=== PATIENT | male | born 1975 | race Caucasian/White ===

== ENCOUNTER 2020-05-03 10:26 | Emergency (ER) | payer OTHER ==
[~2020-05-03] VITALS: Ht 167.6 cm; Wt 122.5 kg
[2020-05-03] MEDS ORDERED: MOTRIN PM CAPL1 EACH (11:14)
== END 2020-05-03 14:50 | disposition home or self-care (01) ==
LOC: ER 10:26
DX: N20.1 Calculus of ureter (principal); Z20.822 Contact with and (suspected) exposure to COVID-19

== ENCOUNTER 2020-05-05 17:25 | Inpatient (IN) | payer OTHER ==
[~2020-05-05] VITALS: Ht 167.6 cm; Wt 77.1 kg
[~2020-05-05 17:25] MED LIST: MOTRIN PM CAPL1 EACH
== END 2020-05-06 18:40 | disposition home or self-care (01) | DRG 661 ==
LOC: ER 17:25 → SEC-K 05-06 08:30 → O/R 05-06 08:30
PROVIDERS: ADMIT Urology; ATTEND Urology
PROC: 0T9780Z Drainage of Left Ureter with Drainage Device, Via Natural or Artificial Opening Endoscopic (ICD-10-PCS; 2020-05-06)
PROC: 0TF78ZZ Fragmentation in Left Ureter, Via Natural or Artificial Opening Endoscopic (ICD-10-PCS; 2020-05-06)
PROC: 0T778DZ Dilation of Left Ureter with Intraluminal Device, Via Natural or Artificial Opening Endoscopic (ICD-10-PCS; principal; 2020-05-06 14:15)
DX: N20.1 Calculus of ureter (principal); Z20.822 Contact with and (suspected) exposure to COVID-19

== ENCOUNTER 2020-05-26 08:02 | Outpatient (CLI) | payer OTHER | END 2020-05-26 08:23 | disposition HB | LOC: RAD 08:02 | PROVIDERS: ATTEND Urology | DX: N20.1 Calculus of ureter (principal) ==

== ENCOUNTER 2023-06-17 18:01 | Emergency (ER) | payer OTHER ==
[~2023-06-17] VITALS: Ht 167.6 cm; Wt 83.9 kg
[2023-06-17] MEDS ORDERED: ZESTRIL10 M1 (18:10)
[2023-06-17] MEDS ORDERED: SANDOSTATI50 MCG/1 M (18:12)
[2023-06-17] MEDS ORDERED: POTASSIUM99 M3 (18:13)
[2023-06-17] MEDS ORDERED: FUROSEMIDE20 MG (18:14)
[2023-06-17] MEDS ORDERED: ORPHENADRINE CITRATE 30 MG/ML AMPUL IM ONE (20:15)
[2023-06-17] MEDS ORDERED: KETOROLAC TROMETHAMINE 60 MG VIAL IM ONE (20:15)
== END 2023-06-17 23:39 | disposition home or self-care (01) ==
LOC: ER 18:02
DX: M62.838 Other muscle spasm (principal); R20.0 Anesthesia of skin; R20.2 Paresthesia of skin; I10 Essential (primary) hypertension

== ENCOUNTER 2024-01-11 07:24 | Outpatient (CLI) | payer OTHER ==
[~2024-01-11 07:24] MED LIST changes: +FUROSEMIDE20 MG; +POTASSIUM99 M3; +SANDOSTATI50 MCG/1 M; +ZESTRIL10 M1
== END 2024-01-11 07:30 | disposition home or self-care (01) ==
LOC: RAD 07:24
PROVIDERS: ATTEND Urology
DX: N40.0 Benign prostatic hyperplasia without lower urinary tract symptoms (principal)